=== PATIENT | male | born 1990 | race Caucasian/White ===

== ENCOUNTER 2017-02-24 10:39 | Emergency (ER) | payer OTHER ==
[~2017-02-24] VITALS: Ht 165.1 cm; Wt 82.5 kg
[~2017-02-24 10:39] MED LIST: ALBU8.5H3 INH; AMOX1TAB10 PO; AZIT250T94 PO; FIORICET PO; IBUP-1542 PO; MOTS PO; ONDA4TAB14 PO; PRED15SO PO; PRED50TA PO; UDTYL PO; VIGA RIGHT EYE
[2017-02-24 10:45] VITALS: Ht 165.1 cm; Wt 82.5 kg
[2017-02-24] MEDS ORDERED: DIPHENHYDRAMINE 50 MG INJ IM ONE (12:00)
[2017-02-24] MEDS ORDERED: FAMOTIDINE 20 MG TAB PO ONE (12:00)
[2017-02-24] MEDS ORDERED: DEXAMETHASONE 10 MG/ML 1 ML INJ IM ONE (12:00)
[2017-02-24] MEDS ORDERED: BEN25 PO (12:20)
[2017-02-24] MEDS ORDERED: IBUP-1542 PO (12:21)
[2017-02-24] MEDS ORDERED: CEPH-443 PO (12:22)
--- NOTE | 2017-02-24 12:30 | ERD ---
ER Documentation Chief Complaint Chief Complaint R. hand pain/swelling x yesterday after bee sting denies SOB HPI This is a 26-year-old male who presents the emergency department today complaining of some right hand pain and swelling that started yesterday after being run by a bee. He had fallen asleep and then got stung by a bee. States he pulled the stinger out. Patient denies any difficulty breathing or shortness of breath. States that he took Benadryl at 7 this morning. Denies any fevers or chills. ROS All systems reviewed and are negative except as per history of present illness. Medications Home Meds Active Scripts Cephalexin* (Keflex*) 500 Mg Capsule, 500 MG PO QID for 7 Days, CAP Prov:VIPUL BOLAÑOS PA-C 02/24/17 Ibuprofen* (Motrin*) 600 Mg Tab, 600 MG PO Q6, #30 TAB Prov:IVPUL BOLAÑOS PA-C 02/24/17 Diphenhydramine Hcl* (Benadryl*) 25 Mg Cap, 25 MG PO Q6, #30 CAP Prov:VIPUL OBLAÑOS PA-C 02/24/17 Albuterol Sulfate* (Proair HFA*) 8.5 Gm Hfa.aer.ad, 2 PUFF INH Q4, #1 INHALER Prov:ENID WELSH PA-C 03/23/16 Prednisone* (Prednisone*) 50 Mg Tablet, 50 MG PO DAILY for 5 Days, TAB Prov:ENID WELSH PA-C 03/23/16 Azithromycin* (Zithromax*) 250 Mg Tablet, 250 MG PO .SylviaPACK DIRECTED, #6 TAB TAKE 500 MG (2 TABS) THE FIRST DAY THEN 250 MG (1 TAB) DAYS 2-5 Prov:ENID WELSH PA-C 03/23/16 Prednisolone* (Prelone*) 15 Mg/5 Ml Solution, 5 ML PO DAILY for 5 Days, BOTTLE Prov:ENID WELSH PA-C 03/23/16 Ibuprofen (MOTRIN LIQUID (PED)) 20 Mg/Ml Susp, 7.5 ML PO Q6, #4 OZ Prov:ENID WELSH PA-C 03/23/16 Acetaminophen* (Tylenol*) 160 Mg/5 Ml Soln, 7 ML PO Q4H Y for PAIN AND OR ELEVATED TEMP, #4 OZ Prov:ENID WELSH PA-C 03/23/16 Amoxicillin/Potassium Clav (Amox-Clav 875-125 mg Tablet) 875-125 mg Tab, 1 TAB PO BID for 7 Days, #14 TAB Prov:LUCITA HERNADEZ PA-C 03/11/16 Ibuprofen* (Motrin*) 600 Mg Tab, 600 MG PO Q6, #30 TAB Prov:LUCITA HERNADEZ PA-C 03/11/16 Ondansetron (Ondansetron Odt) 4 Mg Tab.rapdis, 4 MG PO Q8 Y for NAUSEA AND/OR VOMITING, #30 TAB Prov:SALIMA KENT NP 01/03/16 Acetamin/Butalbital/Caffeine* (Fioricet*) [id number] Tab, 1 TAB PO Q6H Y for PAIN, #30 TAB Prov:SALIMA KENT NP 01/03/16 Moxifloxacin Hcl* (Vigamox*) 0.5% - 3 Ml Opht, 1 DROP RIGHT EYE TID for 7 Days, EA Prov:EARL CRUZ PA-C 06/26/15 Allergies Allergies: Coded Allergies: codeine (Verified Allergy, Mild, HIVES, 02/24/17) PMhx/Soc History of Surgery: Yes (Hernia repair) Anesthesia Reaction: No Hx Neurological Disorder: No Hx Respiratory Disorders: No Hx Cardiac Disorders: No Hx Psychiatric Problems: No Hx Miscellaneous Medical Probl: No Hx Alcohol Use: Yes Hx Substance Use: Yes (THC) Hx Tobacco Use: Yes Smoking Status: Never smoker Physical Exam Vitals Vital Signs Date Time Temp Pulse Resp B/P Pulse Ox O2 Delivery O2 Flow Rate FiO2 02/24/17 10:45 98.3 84 18 130/63 97 Physical Exam Const: NAD Head: Atraumatic Eyes: Normal Conjunctiva ENT: Normal External Ears, Nose and Mouth. No lip swelling. Uvula midline. Neck: Full range of motion..~ No meningismus. Resp: Clear to auscultation bilaterally Cardio: Regular rate and rhythm, no murmurs Abd: Soft, non tender, non distended. Normal bowel sounds Skin: No petechiae or rashes MSk: Right hand with evidence of insect bite medial aspect fourth finger with localized erythema and some swelling over the dorsal aspect of the right hand that is localized. Full active range of motion at wrist and fingers. Pulses 2+ . Distal neurovascularly intact. Neur: Awake and alert Psych: Normal Mood and Affect Results 24 hrs Current Medications Medications (Trade) Dose Ordered Sig/Maurilio Route PRN Reason Start Time Stop Time Status Last Admin Dose Admin Diphenhydramine HCl (Benadryl) 25 mg ONCE ONCE IM 02/24/17 12:00 02/24/17 12:01 DC 02/24/17 12:04 Famotidine (Pepcid) 20 mg ONCE ONCE PO 02/24/17 12:00 02/24/17 12:01 DC 02/24/17 12:03 Dexamethasone (Decadron) 10 mg ONCE ONCE IM 02/24/17 12:00 02/24/17 12:01 DC 02/24/17 12:04 Procedures/MDM This a right handed 26-year-old male who presents the emergency department today for swelling and pain over his right hand after being stung by bee yesterday. On physical exam patient has evidence of a bee sting on the medial aspect of his right hand fourth finger. He has full active range of motion of his fingers and wrist. There is some localized erythema and some swelling and I feel that is likely more related to the allergic reaction and not indicative of cellulitis however I will give the patient a prescription for Keflex to cover him. He was given Decadron and Benadryl and Pepcid here in the emergency department did patient was also given a prescription for Benadryl and Motrin for home. Patient symptoms at this time is consistent with allergic reaction secondary to insect bite. Low suspicion for sepsis, deep space tracking infection. Patient is afebrile and otherwise well-appearing. Her to follow-up in 48 hours for a wound check. At this time the patient is stable for discharge and outpatient management. Patient should follow up with their PCP in the next 1-2 days. They may return to the emergency department sooner for any persistent or worsening of symptoms. Patient understood and agreed with the plan. Departure Diagnosis: Primary Impression: Bee sting reaction Encounter type: initial encounter Injury intent: accidental or unintentional Qualified Code: T63.441A - Bee sting reaction, accidental or unintentional, initial encounter Condition: Fair Patient Instructions: Allergic Reaction, Insect (Local) Referrals: [facility] YOU HAVE RECEIVED A MEDICAL SCREENING EXAM AND THE RESULTS INDICATE THAT YOU DO NOT HAVE A CONDITION THAT REQUIRES URGENT TREATMENT IN THE EMERGENCY DEPARTMENT. FURTHER EVALUATION AND TREATMENT OF YOUR CONDITION CAN WAIT UNTIL YOU ARE SEEN IN YOUR DOCTORS OFFICE WITHIN THE NEXT 1-2 DAYS. IT IS YOUR RESPONSIBILITY TO MAKE AN APPOINTMENT FOR FOLOW-UP CARE. IF YOU HAVE A PRIMARY DOCTOR --you should call your primary doctor and schedule an appointment IF YOU DO NOT HAVE A PRIMARY DOCTOR YOU CAN CALL OUR PHYSICIAN REFERRAL HOTLINE AT IF YOU CAN NOT AFFORD TO SEE A PHYSICIAN YOU CAN CHOSE FROM THE FOLLOWING [facility] [id number] [facility]. [facility] [address] [facility] [facility] [address] [facility] [facility] [address] [facility]. [facility] [address] [facility]. [facility]. [address] Additional Instructions: Call your primary care doctor TOMORROW for an appointment during the next 1-2 days.See the doctor sooner or return here if your condition worsens before your appointment time. Take Benadryl every 6 hours to help decrease pain and swelling. Take Tylenol Motrin for pain. Take antibiotic as prescribed and return in 48 hours for a wound check. Stop smoking cigarettes VIPUL BOLAÑOS PA-C Feb 24, 2017 12:30
== END 2017-02-24 13:30 | disposition home or self-care (01) ==
LOC: FTE 10:39
DX: T63.441A Toxic effect of venom of bees, accidental (unintentional), initial encounter (principal); Z87.891 Personal history of nicotine dependence
CPT/HCPCS: 96372; J1100; J1200; Z7502; Z7610

== ENCOUNTER 2018-08-06 05:23 | Emergency (ER) | payer MEDICAID, OTHER ==
[~2018-08-06] VITALS: Ht 165.1 cm; Wt 91.3 kg
[~2018-08-06 05:23] MED LIST changes: -ALBU8.5H3 INH; +ALBU8.5H8 INH; +AZIT250T PO; -AZIT250T94 PO; +BEN25 PO; +CEPH-443 PO; -PRED15SO PO; +PREL60L PO
[2018-08-06 05:28] VITALS: BP 161/107; PULSE 63; RESP 18; Ht 165.1 cm; Wt 91.3 kg
[2018-08-06] MEDS ORDERED: OFLO5DRO46 LEFT EYE (06:27)
--- NOTE | 2018-08-06 07:26 | ERD ---
ER Documentation Chief Complaint Chief Complaint PT STATES THERE IS "SOMETHING IN HIS LT EYE", LEFT EYE IS RED AND SWOLLEN HPI 27-year-old male presenting with foreign body to his left eye. Patient states that he got something in his eye yesterday while working. Patient works in construction. He denies any glasses or contact use. Denies any visual changes. He used eyedrops and a Q-tip last night with no improvement of his symptoms. Denies medical problems. Allergic to codeine. Surgical history denies. Social history smokes less than a pack a day. ROS All systems reviewed and are negative except as per history of present illness. Medications Home Meds Active Scripts Ofloxacin* (Ocuflox*) 0.3%-5 Ml Ophth Drops, 1 DROP LEFT EYE QID for 7 Days, #1 BOTTLE Prov:JAZMIN UMANA PA-C 08/06/18 Cephalexin* (Keflex*) 500 Mg Capsule, 500 MG PO QID for 7 Days, CAP Prov:VIPUL BOLAÑOS PA-C 02/24/17 Ibuprofen* (Motrin*) 600 Mg Tab, 600 MG PO Q6, #30 TAB Prov:VIPUL BOLAÑOS PA-C 02/24/17 Diphenhydramine Hcl* (Benadryl*) 25 Mg Cap, 25 MG PO Q6, #30 CAP Prov:VIPUL BOLAÑOS PA-C 02/24/17 Albuterol Sulfate* (Proair HFA*) 8.5 Gm Hfa.aer.ad, 2 PUFF INH Q4, #1 INHALER Prov:ENID WELSH PA-C 03/23/16 Prednisone* (Prednisone*) 50 Mg Tablet, 50 MG PO DAILY for 5 Days, TAB Prov:ENID WELSH PA-C 03/23/16 Azithromycin* (Zithromax*) 250 Mg Tablet, 250 MG PO .IKE DIRECTED, #6 TAB TAKE 500 MG (2 TABS) THE FIRST DAY THEN 250 MG (1 TAB) DAYS 2-5 Prov:ENID WELSH PA-C 03/23/16 Prednisolone* (Prelone*) 15 Mg/5 Ml Solution, 5 ML PO DAILY for 5 Days, BOTTLE Prov:ENID WELSH PA-C 03/23/16 Ibuprofen (MOTRIN LIQUID (PED)) 20 Mg/Ml Susp, 7.5 ML PO Q6, #4 OZ Prov:ENID WELSH PA-C 03/23/16 Acetaminophen* (Tylenol*) 160 Mg/5 Ml Soln, 7 ML PO Q4H PRN for PAIN AND OR ELEVATED TEMP, #4 OZ Prov:ENID WELSH PA-C 03/23/16 Amoxicillin/Potassium Clav (Amox-Clav 875-125 mg Tablet) 875-125 mg Tab, 1 TAB PO BID for 7 Days, #14 TAB Prov:LUCITA HERNADEZ PA-C 03/11/16 Ibuprofen* (Motrin*) 600 Mg Tab, 600 MG PO Q6, #30 TAB Prov:LUCITA HERNADEZ PA-C 03/11/16 Ondansetron (Ondansetron Odt) 4 Mg Tab.rapdis, 4 MG PO Q8 PRN for NAUSEA AND/OR VOMITING, #30 TAB Prov:SALIMA KENT NP 01/03/16 Acetamin/Butalbital/Caffeine* (Fioricet*) [id number] Tab, 1 TAB PO Q6H PRN for PAIN, #30 TAB Prov:SALIMA KENT NP 01/03/16 Moxifloxacin Hcl* (Vigamox*) 0.5% - 3 Ml Opht, 1 DROP RIGHT EYE TID for 7 Days, EA Prov:EARL CRUZ PA-C 06/26/15 Allergies Allergies: Coded Allergies: codeine (Verified Allergy, Mild, HIVES, 02/24/17) PMhx/Soc Medical and Surgical Hx: pt denies Medical Hx History of Surgery: Yes (Hernia repair) Anesthesia Reaction: No Hx Neurological Disorder: No Hx Respiratory Disorders: No Hx Cardiac Disorders: No Hx Psychiatric Problems: No Hx Miscellaneous Medical Probl: No Hx Alcohol Use: Yes (OCASSIONALLY) Hx Substance Use: Yes (THC) Hx Tobacco Use: Yes Smoking Status: Current every day smoker FmHx Family History: No diabetes, No coronary disease, No other Physical Exam Vitals Vital Signs Date Temp Pulse Resp B/P (MAP) Pulse Ox O2 O2 Flow FiO2 Time Delivery Rate 08/06/18 97.9 63 18 161/107 99 05:28 (125) Physical Exam GENERAL: The patient is well-appearing, well-nourished, in no acute distress HEENT: Atraumatic. Conjunctivae are pink. Pupils equal, round, and reactive to light. There is no scleral icterus. Tympanic membranes clear bilaterally. Oropharynx clear. At the 6 o'clock position of the cornea. NECK: C-spine is soft and supple. There is no meningismus. There is no cervical lymphadenopathy. CHEST: Clear to auscultation bilaterally. There are no rales, wheezes or rhonchi. HEART: Regular rate and rhythm. No murmurs, clicks, rubs or gallops. No S3 or S4. Procedures/MDM ER course: Tetracaine used an insulin syringe use. Small portion of the foreign body was removed however there remained a tiny ellen. That will remain given that I have concerned about possible continued iatrogenic injury if fully removed. MDM: [id number] male presenting with foreign body in the cornea. Patient had foreign body partially removed however is recommended to follow-up with ophthalmology to have continued area removed. I had concern for possible iatro genic injury and did not feel comfortable removing the remaining portion. There is no globe rupture. Patient is discharged with recommendations of getting ofloxacin given a small abrasion was made removing the foreign body. Patient is discharged with strict ER precautions. Departure Diagnosis: Primary Impression: Foreign body in cornea Condition: Stable Patient Instructions: Corneal Foreign Body, Removed, W/ Rust Ring Referrals: [facility] Hours: Mon - Fri 9:00 AM - 5:00 PM Additional Instructions: FOLLOW UP WITH YOUR PRIMARY CARE PHYSICIAN TOMORROW.Return to this facility if you are not improving as expected. JAZMIN UMANA PA-C August 06, 2018 07:26
== END 2018-08-06 06:43 | disposition home or self-care (01) ==
LOC: FTE 05:23
DX: T15.02XA Foreign body in cornea, left eye, initial encounter (principal); F17.210 Nicotine dependence, cigarettes, uncomplicated; X58.XXXA Exposure to other specified factors, initial encounter; Y92.89 Other specified places as the place of occurrence of the external cause
CPT/HCPCS: 65220; Z7502